=== PATIENT | male | born 1965 | race American Indian/Alaskan Native ===

== ENCOUNTER 2021-03-07 11:34 | Emergency (ER) | payer SELFPAY ==
--- NOTE | 2021-03-07 12:13 | Emergency Department Report ---
Blank Doc - Documentation Documentation: 56-year-old male that presents with bilateral upper lower extremity numbness and tingling sensation. Patient has history of diabetes and hypertension has not been taking medication for the past year. Denies any other syptoms or complaints. 1- This initial assessment/diagnostic orders/clinical plan/ treatment(s) is/are subject to change based on pt's health status, clinical progression and re- assessment by fellow clinical providers in the ED. Further treatment and workup at subsequent clinical provers discretion. Patient/guardians urged not to elope from ED as their condition may be serious if not clinically assessed and managed. 2-labs 3-fingerstick 4-UA
[2021-03-07 12:47] LABS: Bilirubin,Urine NEG (Negative); Blood,Urine SM (Negative); Color,Urine Amber (Yellow); WBC,Urine < 1.0 /HPF (0.0-6.0)
[2021-03-07 12:50] LABS: Basophils % (Auto) 0.6 % (0.0-1.8); Lymphocytes # (Auto) 1.4 K/mm3 (1.2-5.4); Lymphocytes % (Auto) 28.7 % (13.4-35.0); Mean Corpuscular HGB Conc 36 % (32-34); Mean Corpuscular Volume 94 fl (84-94); Monocytes # (Auto) 0.4 K/mm3 (0.0-0.8); Monocytes % (Auto) 9.3 % (0.0-7.3); Platelet Count 184 K/mm3 (140-440); Red Blood Count 4.25 M/mm3 (3.65-5.03); Red Cell Distribution Width 13.4 % (13.2-15.2)
[2021-03-07 13:11] LABS: RBC,Urine < 1.0 /HPF (0.0-6.0)
[2021-03-07 13:11] LABS: Hemoglobin 14.5 gm/dl (11.8-15.2)
[2021-03-07 13:12] LABS: Alanine Aminotransferase 33 units/L (7-56); Albumin 4.4 g/dL (3.9-5); BUN/Creatinine Ratio 16; Blood Urea Nitrogen 13 mg/dL (9-20); Calcium 8.8 mg/dL (8.4-10.2); Hemolysis Index 11
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
[2021-03-07 15:40] VITALS: BP 188/113
== END 2021-03-07 15:42 | disposition home or self-care (01) ==
LOC: ED 11:34
DX: G62.1 Alcoholic polyneuropathy (principal); I16.0 Hypertensive urgency; R80.9 Proteinuria, unspecified; F10.20 Alcohol dependence, uncomplicated; E11.9 Type 2 diabetes mellitus without complications; F17.200 Nicotine dependence, unspecified, uncomplicated; Z79.899 Other long term (current) drug therapy
CPT/HCPCS: 36415; 80053; 81001; 82805; 82962; 85025; 99283